=== PATIENT | male | born 1945 | race Hispanic/Latino ===

== ENCOUNTER 2016-09-10 17:41 | Emergency (ER) | payer MEDICARE ==
[2016-09-10] MEDS ORDERED: MECLIZINE HCL 12.5 MG TAB PO ONE ×2 (18:19→20:08)
--- NOTE | 2016-09-10 18:44 | RAD ---
PROCEDURE: XR CHEST 1 VIEW HISTORY: chest pain yesterday COMPARISON: 11/20/2013 TECHNIQUE: Single projection of the chest was done. FINDINGS: The lung barragan are well inflated . There are no discrete airspace infiltrates, pneumothoraces or pleural effusions. The pulmonary vascularity is normal. The cardiomediastinal silhouette is stable. IMPRESSION: There is no acute pleural-parenchymal process seen in the imaged lung barragan. Location of Interpretation: [facility] Electronically signed by: Luis Bojorquez MD 09/10/2016 6:43 PM CDT Workstation: [id number]
[2016-09-10 18:52] VITALS: TEMP 98.2
[2016-09-10] MEDS ORDERED: ASPIRIN TABLET 325 MG TAB PO ONE (20:09)
--- NOTE | 2016-09-10 20:11 | ED.PDOC ---
History of Present Illness - General Chief Complaint: General Stated Complaint: Dizziness, Nausea Time Seen by Provider: 09/10/16 17:53 Source: patient Exam Limitations: no limitations, language barrier - amily member and nursing staff he is to help translate - History of Present Illness Initial Comments: the patient is a 71-year-old male presenting to the emergency room secondary to episodes of dizziness. Several of the episodes are described as true vertigo. He is still having some mild dizziness. Several other episodes did make him throw up. These have been ongoing today and yesterday. Yesterday morning he had one brief episode ofsubsternal chest pain. He was at rest when it occurred. When away on its own. No palpitations. No syncope. No fever. No shortness of breath. No weakness. No previous episodes. He denies any cardiac history. No definite history of any strokes. Severity: moderate Improving Factors: immobilization Worsening Factors: movement Associated Symptoms: chest pain, malaise, nausea/vomiting Allergies/Adverse Reactions: Allergies NO KNOWN ALLERGY Allergy (Verified 02/17/16 20:43) Home Medications: Ambulatory Orders Carvedilol [Coreg] 25 mg PO BID 04/12/14 Insulin Detemir [Levemir Pen] 65 unit SUBCU BID 04/12/14 Lisinopril 40 mg PO DAILY@0700 04/12/14 Metformin HCl [Glucophage] 1,000 mg PO BID 04/12/14 Rivaroxaban [Xarelto] 10 mg PO QDAC #9 tab 04/16/14 Atorvastatin Calcium [Lipitor] 40 mg PO DAILY 09/10/16 Insulin Lispro [HumaLOG] 1 unit SUBCU DAILY 09/10/16 Meclizine HCl [Meclizine 25] 25 mg PO Q6H PRN #30 tab 09/10/16 Ondansetron [Zofran Odt] 4 mg PO Q4H PRN #10 tab 09/10/16 Review of Systems - Review of Systems Constitutional: States: no symptoms reported EENTM: States: blurred vision - vertigo type symptoms Respiratory: States: no symptoms reported Cardiology: States: see HPI, chest pain Gastrointestinal/Abdominal: States: nausea, vomiting Genitourinary: States: no symptoms reported Musculoskeletal: States: no symptoms reported Skin: States: no symptoms reported Neurological: States: see HPI Endocrine: States: no symptoms reported All other Systems: No Change from Baseline Past Medical History (General) - Patient Medical History Hx Stroke: Yes - TIA Hx Congestive Heart Failure: No Hx Hypertension: Yes Hx Diabetes: Yes Hx Cancer: No Hx Hepatitis C: No - Vaccination History Hx Tetanus, Diphtheria Vaccination: No Hx Influenza Vaccination: Yes Hx Pneumococcal Vaccination: No - Social History Hx Tobacco Use: No Hx Chewing Tobacco Use: No Hx Alcohol Use: No Hx Substance Use: No Hx Substance Use Treatment: No Hx Depression: No Feels Threatened In Home Enviroment: No Feels Threatened In a Relationship: No Hx Physical Abuse: No Hx Emotional Abuse: No Hx Suspected Abuse: No - Female History Patient : No Family Medical History - Family History Father Living Status: Hx Family Diabetes: Yes Physical Exam - Physical Exam General Appearance: Alert, Comfortable, No apparent distress Eye Exam: bilateral normal - upils are equal and symmetrical and reactive bilaterally. Ears, Nose, Throat: hearing grossly normal, normal ENT inspection, normal pharynx Neck: non-tender, full range of motion, supple Respiratory: chest non-tender, lungs clear, normal breath sounds, no respiratory distress, no accessory muscle use Cardiovascular/Chest: normal peripheral pulses, regular rate, rhythm, no edema Peripheral Pulses: radial,right: 2+, radial,left: 2+, dorsalis pedis,right: 2+, dorsalis pedis,left: 2+ Gastrointestinal/Abdominal: non tender, soft Rectal Exam: deferred Back Exam: normal inspection, no CVA tenderness, no vertebral tenderness Extremity: normal range of motion, non-tender, normal inspection, no pedal edema , normal capillary refill Neurologic: no motor/sensory deficits, alert, normal mood/affect, oriented x 3 Skin Exam: normal color Comments: Vital Signs - 24 hr 09/10/16 18:46 Temperature 98.2 F Pulse Rate [L 65 Arm] Respiratory 20 Rate Blood Pressure 177/78 [L Arm] O2 Sat by Pulse 94 L Oximetry Progress - Progress Progress: 09/10/16 20:13 the patient is a 71-year-old male presenting secondary to episodes of vertigo and dizziness with associated nausea and vomiting as well as one brief episode yesterday of chest pain. The patient appears to have an acute vestibular syndrome. HINTS exam was abnormal for the head impulse test when turned to his left. Alternating eye cover test was within normal limits. Nystagmus was in a normal pattern. his visual reacquirement of target was significantly slowed in that direction. lab work is reassuring. No evidence of myocardial infarction. the patient needs to keep well-hydrated. He needs to control his diabetes well. He will be written for meclizine for dizziness. He needs to ambulate carefully. No steroids were given due tohis diabetes. He needs to follow-up with his primary care doctor later this week. ER warnings were given for any worsening. given the patient's risk factors, an exercise tolerance test in the very near futureis warranted. The patient needs to take an aspirin daily. 09/10/16 20:16 - Results/Orders Results/Orders: 09/10/16 18:19 Telemetry .CONTINUOUS 09/10/16 18:30 EKG STAT EKG shows nonspecific T-wave changes. There is [address] segment elevation in V1 and V2 only. Normal sinus rhythm otherwise. I'm unable to access on the computer system at this time his previous EKGs. Laboratory Results - last 24 hr 09/10/16 09/10/16 09/10/16 18:40 18:40 18:40 WBC 7.8 RBC 5.31 Hgb 14.8 Hct 43.3 MCV 81.7 MCH 27.9 MCHC 34.2 RDW 13.9 Plt Count 138 MPV 11.4 H Absolute Neuts (auto) 5.50 Absolute Lymphs (auto) 1.70 Absolute Monos (auto) 0.50 Absolute Eos (auto) 0.10 Absolute Basos (auto) 0.00 Neutrophils % 70.1 Lymphocytes % 22.2 Monocytes % 5.8 Eosinophils % 1.5 Basophils % 0.4 PT 11.9 INR 1.050 PTT (SP) 30.7 Sodium 139 Potassium 3.8 Chloride 101 Carbon Dioxide 28 Anion Gap 13.8 BUN 16 Creatinine 0.70 BUN/Creatinine Ratio 22.9 H Random Glucose 208 H Serum Osmolality 284.8 Calcium 9.1 Magnesium 1.8 Total Bilirubin 0.7 AST 15 ALT 17 Alkaline Phosphatase 57 Creatine Kinase 61 CK-MB (CK-2) 2.2 CK-MB (CK-2) % Not Reportable Troponin I 0.02 B-Natriuretic Peptide 38.8 Serum Total Protein 6.9 Albumin 4.0 Globulin 2.9 Albumin/Globulin Ratio 1.4 Amylase 27 L - EKG/XRAY/CT CT Ordered: No CT Interpretation Call Back: No Departure - Departure Clinical Impression: Vertiginous syndromes and other disorders of vestibular system Disposition: Discharge to Home or Self Care Condition: Fair Departure Forms: ED Discharge - Pt. Copy, Patient Portal Self Enrollment Instructions: DI for Vertigo Diet: diabetic diet Activity: increase activity as tolerated Referrals: Sorin Mart MD [Primary Care Provider] - 1-5 Days Prescriptions: Meclizine HCl [Meclizine 25] 25 mg PO Q6H PRN #30 tab PRN Reason: Dizziness Ondansetron [Zofran Odt] 4 mg PO Q4H PRN #10 tab PRN Reason: Vomiting Home Medications: Ambulatory Orders Carvedilol [Coreg] 25 mg PO BID 04/12/14 Insulin Detemir [Levemir Pen] 65 unit SUBCU BID 04/12/14 Lisinopril 40 mg PO DAILY@0700 04/12/14 Metformin HCl [Glucophage] 1,000 mg PO BID 04/12/14 Rivaroxaban [Xarelto] 10 mg PO QDAC #9 tab 04/16/14 Atorvastatin Calcium [Lipitor] 40 mg PO DAILY 09/10/16 Insulin Lispro [HumaLOG] 1 unit SUBCU DAILY 09/10/16 Meclizine HCl [Meclizine 25] 25 mg PO Q6H PRN #30 tab 09/10/16 Ondansetron [Zofran Odt] 4 mg PO Q4H PRN #10 tab 09/10/16 Additional Instructions: the patient is a 71-year-old male presenting secondary to episodes of vertigo and dizziness with associated nausea and vomiting as well as one brief episode yesterday of chest pain. The patient appears to have an acute vestibular syndrome. HINTS exam was abnormal for the head impulse test when turned to his left. Alternating eye cover test was within normal limits. Nystagmus was in a normal pattern. his visual reacquirement of target was significantly slowed in that direction. lab work is reassuring. No evidence of myocardial infarction. the patient needs to keep well-hydrated. He needs to control his diabetes well. He will be written for meclizine for dizziness. He needs to ambulate carefully. No steroids were given due tohis diabetes. He needs to follow-up with his primary care doctor later this week. ER warnings were given for any worsening. given the patient's risk factors, an exercise tolerance test in the very near futureis warranted. The patient needs to take an aspirin daily.
[2016-09-10 20:39] VITALS: BP 167/94; O2SAT 96
== END 2016-09-10 20:40 | disposition home or self-care (01) ==
LOC: ER 17:41
DX: H81.90 Unspecified disorder of vestibular function, unspecified ear (principal); E11.9 Type 2 diabetes mellitus without complications; I10 Essential (primary) hypertension; Z86.73 Personal history of transient ischemic attack (TIA), and cerebral infarction without residual deficits; Z79.4 Long term (current) use of insulin; Z79.899 Other long term (current) drug therapy

== ENCOUNTER → 2017-01-18 | Outpatient (CLI) | payer MEDICARE | END | disposition home or self-care (01) | LOC: GMAJ 10:09 | PROVIDERS: ATTEND Family Medicine | DX: Z12.5 Encounter for screening for malignant neoplasm of prostate (principal) ==

== ENCOUNTER → 2018-05-30 | Outpatient (CLI) | payer MEDICARE | LOC: GMAJ 10:37 | PROVIDERS: ATTEND Family Medicine | DX: Z12.5 Encounter for screening for malignant neoplasm of prostate (principal) ==

== ENCOUNTER → 2019-10-05 | Outpatient (CLI) | payer MEDICARE | LOC: GMAJ 10:21 | PROVIDERS: ATTEND Family Medicine | DX: Z12.5 Encounter for screening for malignant neoplasm of prostate (principal) ==